=== PATIENT | male | born 1985 | race African-American/Black ===

== ENCOUNTER 2017-02-11 06:07 | Emergency (ER) | payer SELFPAY ==
[~2017-02-11 06:07] MED LIST: NO MEDICATIONS
== END 2017-02-11 06:15 | disposition home or self-care (01) ==
LOC: SED 06:07
DX: F11.129 Opioid abuse with intoxication, unspecified (principal); F17.200 Nicotine dependence, unspecified, uncomplicated
CPT/HCPCS: 99282